=== PATIENT | female | born 1980 | race Caucasian/White ===

== ENCOUNTER → 2017-05-15 | Outpatient (CLI) | payer OTHER ==
[2017-05-15 11:54] LABS: LYMPH % 31.5 % (10-50.0)
--- NOTE | 2017-05-15 11:54 | RADIOLOGY REPORT PS360 ---
SPINE ENTIRE 2-3 VW SCOLIOSIS CLINICAL INDICATION: SCOLIOSIS ORDERING PHYSICIAN: Jd Pathak MD PATIENT AGE: 36 years COMPARISON: None FINDINGS: There is a mild levoscoliosis of the thoracic spine measuring 16 degrees and a mild to moderate dextroscoliosis of the thoracic lumbar junction measuring 26 degrees. No obvious congenital defects evident. There is a mild rotary component of the lumbar spine. IMPRESSION: Thoracic lumbar scoliosis as described above
--- NOTE | 2017-05-15 11:55 | RADIOLOGY REPORT PS360 ---
EXAM: LUMBAR SPINE 5 VIEWS HISTORY: LOW BACK PAIN ORDERING PHYSICIAN: Jd Pathak MD PATIENT AGE: 36 years COMPARISON: None FINDINGS: There is a mild thoracolumbar scoliosis convex right. This measures 15 degrees on the supine views but measures up to 26 degrees on the upright spine view. No fracture or dislocation. No lytic or blastic change. There is some mild facet sclerosis at the L5-S1 junction. The disc spaces are well-preserved. No evidence of congenital vertebral anomaly. Mild sclerosis involving aspect of the left SI joint. IMPRESSION: 1. Dextroscoliosis. 2. Mild facet arthritic change L5-S1 and mild sclerosis of left SI joint
[2017-05-15 12:00] LABS: BUN 11 mg/dL (7-18)
[2017-05-15 12:02] LABS: GFR (ESTIMATED) 95 ML/MIN (59-)
[2017-05-16 08:40] LABS: Rapid Plasma Reagin, Quant Non Reactive (NonRea<1:1); Vitamin B12 699 pg/mL (211-946)
[2017-05-19 16:41] LABS: Methylmalonic Acid 137 nmol/L (0-378)
== END ==
LOC: LAB 10:20
PROVIDERS: Internal Medicine Adolescent Medicine
DX: G60.9 Hereditary and idiopathic neuropathy, unspecified (principal); M54.5 Low back pain; M41.20 Other idiopathic scoliosis, site unspecified